=== PATIENT | male | born 1985 | race Caucasian/White ===

== ENCOUNTER 2020-05-26 22:12 | Emergency (ER) | payer OTHER ==
--- NOTE | 2020-05-27 00:07 | ED Physician Documentation ---
PD HPI WOUND RECHECK - Stated complaint Stated Complaint: RT SHOULDER STITCHES IRRITATION - Chief complaint Chief Complaint: Wound - Histroy obtained from History obtained from: Patient - History of Present Illness Location: Right Upper Extremity (right shoulder) Timing - onset: How many weeks ago (2) Associated symptoms: No: Fever, Redness, Drainage Recently seen: Clinic (skin lesion removal 2 weeks ago by Derm and missed appt to get sutures out, so here for that. No infection symptoms.) Review of Systems Constitutional: denies: Fever, Chills Neurologic: denies: Focal weakness, Numbness PD PAST MEDICAL HISTORY - Past Medical History Past Medical History: No Cardiovascular: None Respiratory: None Neuro: None Endocrine/Autoimmune: None GI: None : None HEENT: Chronic vision loss Psych: None Musculoskeletal: None Derm: None - Past Surgical History Past Surgical History: No - Present Medications Home Medications: Ambulatory Orders Medication Instructions Recorded Confirmed Cetirizine HCl [Zyrtec] 10 mg PO DAILY #15 tablet 08/03/15 Hydrocodone/Acetaminophen [[place] 1 each PO Q6H PRN #20 tablet 08/03/15 5-325 Tablet] Ibuprofen 600 mg PO TID #20 tablet 08/03/15 predniSONE [Deltasone] 40 mg PO DAILY 5 Days tablet 08/03/15 - Allergies Allergies/Adverse Reactions: Allergies Allergy/AdvReac Type Severity Reaction Status Date / Time No Known Drug Allergies Allergy Verified 08/03/15 02:57 - Social History Does the pt smoke?: No Smoking Status: Never smoker Does the pt drink ETOH?: Yes Does the pt have substance abuse?: No - Immunizations Immunizations are current?: Yes - POLST Patient has POLST: No PD ED PE NORMAL - Vitals Vital signs reviewed: Yes - General General: Alert and oriented X 3, No acute distress, Well developed/nourished - Derm Derm: Normal color, Warm and dry - Extremities Extremities: Other (right shoulder with healing wound with running suture in place. No signs of infection. Sutures removed without problems. ) Results - Vitals Vitals: Vital Signs - 24 hr 05/26/20 05/27/20 22:28 00:17 Temperature 37.0 C Heart Rate 59 L 60 Respiratory 16 16 Rate Blood Pressure 128/77 122/76 O2 Saturation 97 99 Oxygen O2 Source Room air PD MEDICAL DECISION MAKING - ED course Complexity details: considered differential, d/w patient Departure - Departure Disposition: 01 Home, Self Care Clinical Impression: Visit for suture removal Condition: Stable Record reviewed to determine appropriate education?: Yes Instructions: ED Wound Check Sutr Remove No Infec Comments: Continue local wound care with cleaning and ointment until fully healed. No signs of infection at this time. Discharge Date/Time: 05/27/20 00:17
[2020-05-27 00:18] VITALS: BP 122/76
== END 2020-05-27 00:17 | disposition home or self-care (01) ==
LOC: ED 22:12
DX: Z48.02 Encounter for removal of sutures (principal); Z98.890 Other specified postprocedural states
CPT/HCPCS: 99281